=== PATIENT | male | born 1960 | race Two or more races ===

== ENCOUNTER → 2020-02-13 | Outpatient (CLI) | payer OTHER | LOC: LAB SHORT 17:52 → LAB 17:52 | DX: D48.5 Neoplasm of uncertain behavior of skin (principal); L02.425 Furuncle of right lower limb; L02.426 Furuncle of left lower limb; L21.8 Other seborrheic dermatitis; L08.9 Local infection of the skin and subcutaneous tissue, unspecified; B35.1 Tinea unguium | CPT/HCPCS: 87070 ==